=== PATIENT | male | born 1995 | race Caucasian/White ===

== ENCOUNTER 2019-01-17 23:10 | Emergency (ER) | payer OTHER ==
[2019-01-17 23:14] VITALS: BP 149/98
--- NOTE | 2019-01-18 00:02 | EDPHY ---
H & P Stated Complaint: Fall R hand monday, swelling, pain Time Seen by Provider: 01/17/19 23:28 HPI/ROS: Chief Complaint: Right hand injury HPI: 23-year-old male had a slip and fall onto his right hand 6 days ago. He has had pain and deformity since that time. No prior injuries. He has not seen a physician for this. No numbness or weakness. He is right-handed. ROS: 10 systems were reviewed and were negative except those elements noted in the HPI. PMH: Denies Social History: No smoking, occasional alcohol Family History: non-contributory Physical Exam: General: Awake, alert, no acute distress Extremities: Right hand, patient has a deformity on his right distal 5th metacarpal. No swelling, no erythema, sensation is intact in the radial, median, and ulnar nerve distribution. Capillary refills less than 2 sec. 2+ radial ulnar pulses. No proximal hand pain. No wrist pain or deformity. Skin: No rash - Personal History Current Tetanus Diphtheria and Acellular Pertussis (TDAP): Yes - Medical/Surgical History Hx Asthma: No Hx Chronic Respiratory Disease: No Hx Diabetes: No Hx Cardiac Disease: No Hx Renal Disease: No Hx Cirrhosis: No Hx Alcoholism: No Hx HIV/AIDS: No Hx Splenectomy or Spleen Trauma: No Other PMH: Denies - Social History Smoking Status: Heavy smoker Constitutional: Initial Vital Signs Temperature (C) 36.7 C 01/17/19 23:12 Heart Rate 82 01/17/19 23:12 Respiratory Rate 16 01/17/19 23:12 Blood Pressure 149/98 H 01/17/19 23:12 O2 Sat (%) 96 01/17/19 23:12 O2 Delivery Mode Room Air Allergies/Adverse Reactions: acetaminophen Allergy (Verified 01/17/19 23:11) Home Medications: Medication Instructions Recorded NK [No Known Home Meds] 01/17/19 Medical Decision Making - Diagnostics Imaging Results: Fractured distal 5th metacarpal with angulation per my interpretation. Imaging: I viewed and interpreted images myself ED Course/Re-evaluation: 23-year-old male with a hand fracture. Patient has been placed in an ulnar gutter splint. I have inspected the splint. He has got good immobility with normal perfusion. Plan will be for discharge with follow-up with Hand surgery. Departure - Departure Disposition: Home, Routine, Self-Care Clinical Impression: Hand fracture Condition: Good Instructions: Splint Care (ED), Boxer Fracture (ED) Additional Instructions: Follow up with hand surgeon in 3-4 days for further evaluation. Take ibuprofen, 600 mg every 8 hr. You may alternate with acetaminophen, 1000 mg every 8 hr. Referrals: Blaise Patton MD [Medical Doctor] - As per Instructions
== END 2019-01-18 00:14 | disposition home or self-care (01) ==
PROC: 2W3EX1Z Immobilization of Right Hand using Splint (ICD-10-PCS; principal; 2019-01-17)
DX: S62.336A Displaced fracture of neck of fifth metacarpal bone, right hand, initial encounter for closed fracture (principal); W01.0XXA Fall on same level from slipping, tripping and stumbling without subsequent striking against object, initial encounter; Y92.9 Unspecified place or not applicable; Y99.9 Unspecified external cause status; Y93.9 Activity, unspecified